=== PATIENT | female | born 2000 | race Two or more races ===

== ENCOUNTER 2022-08-04 17:37 | Emergency (ER) | payer OTHER ==
[~2022-08-04] VITALS: Ht 162.6 cm; Wt 59.0 kg
== END 2022-08-04 21:54 | disposition home or self-care (01) ==
LOC: EMR PED 17:37
DX: R59.0 Localized enlarged lymph nodes (principal); E06.3 Autoimmune thyroiditis; B34.9 Viral infection, unspecified